=== PATIENT | female | born 1980 | race Asian ===

== ENCOUNTER 2018-06-25 18:02 | Outpatient (CLI) | payer OTHER ==
[2018-06-25] MEDS: TERBUTALINE 1 MG/ML INJ SC ×2 (19:11→20:24)
[2018-06-25] MEDS: LACTATED RINGER'S 1,000 ML IV ×2 (19:21→19:54)
[2018-06-25 19:29] LABS: ADD UMIC YES; UR ASCORBIC ACID 40 mg/dL (NEGATIVE); UR BACTERIA FEW /HPF (NONE SEEN); UR BILIRUBIN (Dip) NEGATIVE (NEGATIVE); UR BLOOD (Dip) NEGATIVE (NEGATIVE); UR CLARITY SLIGHTLY CLOUDY (CLEAR); UR COLOR YELLOW (YELLOW); UR GLUCOSE (Dip) NEGATIVE (NEGATIVE); UR KETONES (Dip) 2+ mg/dL (NEGATIVE); UR LEUKOCYTE ESTERASE (Dip) TRACE Leu/ul (NEGATIVE); UR MUCUS FEW /HPF (NONE SEEN); UR NITRITE (Dip) NEGATIVE (NEGATIVE); UR RBC 4 /HPF (0-5); UR SPECIFIC GRAVITY (Dip) 1.023 (1.003-1.030); UR TOTAL PROTEIN (Dip) NEGATIVE (NEGATIVE); UR UROBILINOGEN (Dip) NEGATIVE (NEGATIVE); UR WBC 2 /HPF (0-5)
== END 2018-06-25 22:47 | disposition home or self-care (01) ==
LOC: OBT 18:02 → L-D 18:04 → OBT 22:47
DX: O62.9 Abnormality of forces of labor, unspecified (principal); Z3A.35 35 weeks gestation of pregnancy
CPT/HCPCS: 76818; 81001; 96360; 96361; 96372

== ENCOUNTER 2018-07-06 10:01 | Outpatient (CLI) | payer OTHER ==
[2018-07-06 10:37] LABS: ADD UMIC NO; UR ASCORBIC ACID NEGATIVE (NEGATIVE); UR BILIRUBIN (Dip) NEGATIVE (NEGATIVE); UR BLOOD (Dip) NEGATIVE (NEGATIVE); UR CLARITY CLEAR (CLEAR); UR COLOR STRAW (YELLOW); UR GLUCOSE (Dip) NEGATIVE (NEGATIVE); UR KETONES (Dip) TRACE mg/dL (NEGATIVE); UR LEUKOCYTE ESTERASE (Dip) NEGATIVE Leu/ul (NEGATIVE); UR NITRITE (Dip) NEGATIVE (NEGATIVE); UR SPECIFIC GRAVITY (Dip) 1.003 (1.003-1.030); UR TOTAL PROTEIN (Dip) NEGATIVE (NEGATIVE); UR UROBILINOGEN (Dip) NEGATIVE (NEGATIVE)
[2018-07-06 10:42] LABS: ADD MAN DIFF? NO
[2018-07-06 10:47] LABS: BASOPHILS % 0.3 % (0.0-2.0); EOSINOPHILS % 0.5 % (0.0-7.0); HEMATOCRIT 43.4 % (37.0-47.0); HEMOGLOBIN 14.3 g/dl (12.0-16.0); LYMPHOCYTES # 1.4 10^3/ul (0.8-2.9); LYMPHOCYTES % 21.7 % (15.0-51.0); MEAN CORPUSCULAR HEMOGLOBIN 29.5 pg (29.0-33.0); MEAN CORPUSCULAR HGB CONC 32.9 g/dl (32.0-37.0); MEAN CORPUSCULAR VOLUME 89.7 fl (82.0-101.0); MEAN PLATELET VOLUME 11.4 fl (7.4-10.4); MONOCYTE # 0.5 10^3/ul (0.3-0.9); MONOCYTES % 8.2 % (0.0-11.0); NEUTROPHIL # 4.6 10^3/ul (1.6-7.5); PLATELET COUNT 192 10^3/UL (140-415); RED BLOOD COUNT 4.84 10^6/ul (4.20-5.40)
[2018-07-06 10:47] LABS: WHITE BLOOD COUNT 6.6 10^3/ul (4.8-10.8)
[2018-07-06 11:04] LABS: INR 0.83; PROTIME 11.5 Sec (11.9-14.9); PT RATIO 0.9
[2018-07-06 11:05] LABS: PARTIAL THROMBOPLASTIN TIME 26.9 Sec (23.0-35.0)
[2018-07-06 11:06] LABS: ALANINE AMINOTRANSFERASE 16 IU/L (13-69); ALBUMIN 3.7 g/dl (3.3-4.9); ALBUMIN/GLOBULIN RATIO 1.02; ALKALINE PHOSPHATASE 147 IU/L (42-121); ANION GAP 14 (5-13); ASPARTATE AMINO TRANSFERASE 21 IU/L (15-46); BILIRUBIN,INDIRECT 0.4 mg/dl (0-1.1); BILIRUBIN,TOTAL 0.4 mg/dl (0.2-1.3); BLOOD UREA NITROGEN 11 mg/dl (7-20); CALCIUM 9.7 mg/dl (8.4-10.2); CARBON DIOXIDE 21 mmol/L (21-31); CHLORIDE 102 mmol/L (97-110); CREATININE 0.51 mg/dl (0.44-1.00); Estimated GFR > 60 mL/min (>60); GLUCOSE 84 mg/dl (70-220); SODIUM 137 mmol/L (135-144); TOTAL PROTEIN 7.3 g/dl (6.1-8.1); URIC ACID 3.8 mg/dl (3.1-7.9)
== END 2018-07-06 12:35 | disposition home or self-care (01) ==
LOC: OBT 10:01 → L-D 10:01 → OBT 12:35
DX: O13.3 Gestational [pregnancy-induced] hypertension without significant proteinuria, third trimester (principal); O09.523 Supervision of elderly multigravida, third trimester; Z3A.37 37 weeks gestation of pregnancy
CPT/HCPCS: 80053; 81003; 84560; 85025; 85384; 85610; 85730

== ENCOUNTER 2018-07-08 08:00 | Outpatient (CLI) | payer OTHER ==
[2018-07-08 08:42] LABS: COLLECTION PERIOD 24 hrs; VOLUME 4300 ml/24hrs
[2018-07-08 09:04] LABS: COLLECTION PERIOD 24 hrs
[2018-07-08 09:10] LABS: CREATININE 0.59 mg/dl (0.44-1.00)
[2018-07-08 09:40] LABS: VOLUME 4300 mls
[2018-07-08 09:43] LABS: SCRET 0.59 mg/dl (0.44-1.00)
[2018-07-08 09:54] LABS: CREATININE CLEARANCE 100.8 mls/min (84.0-162.0); CREATININE,URINE RANDOM 19.92 mg/dl (20-320)
== END 2018-07-08 12:00 | disposition home or self-care (01) ==
LOC: OBT 08:00 → L-D 08:03 → OBT 12:00
DX: O13.3 Gestational [pregnancy-induced] hypertension without significant proteinuria, third trimester (principal); O24.410 Gestational diabetes mellitus in pregnancy, diet controlled; Z3A.37 37 weeks gestation of pregnancy
CPT/HCPCS: 76818; 82565; 82575; 84156

== ENCOUNTER 2018-07-19 05:40 | Inpatient (IN) | payer OTHER ==
[2018-07-19] MEDS: LACTATED RINGER'S 1,000 ML IV ×3 (06:26→22:10)
[2018-07-19] MEDS ORDERED: OXYTOCIN 30 UNITS/LR 500 ML IV ×2 (06:30→08:00)
[2018-07-19] MEDS ORDERED: METHYLERGONOVINE 0.2 MG INJ IM ×2 (06:30→08:00)
[2018-07-19] MEDS ORDERED: MISOPROSTOL 200 MCG TAB PR ×2 (06:30→08:00)
[2018-07-19] MEDS ORDERED: CARBOPROST 250 MCG INJ IM ×2 (06:30→08:00)
[2018-07-19 06:32] LABS: ADD MAN DIFF? NO
[2018-07-19 06:53] LABS: BASOPHILS % 0.3 % (0.0-2.0); EOSINOPHILS # 0.1 10^3/ul (0.0-0.5); EOSINOPHILS % 1.2 % (0.0-7.0); HEMATOCRIT 41.7 % (37.0-47.0); HEMOGLOBIN 13.9 g/dl (12.0-16.0); LYMPHOCYTES # 1.8 10^3/ul (0.8-2.9); LYMPHOCYTES % 28.1 % (15.0-51.0); MEAN CORPUSCULAR HEMOGLOBIN 30.4 pg (29.0-33.0); MEAN CORPUSCULAR HGB CONC 33.3 g/dl (32.0-37.0); MEAN CORPUSCULAR VOLUME 91.2 fl (82.0-101.0); MEAN PLATELET VOLUME 12.2 fl (7.4-10.4); MONOCYTE # 0.6 10^3/ul (0.3-0.9); MONOCYTES % 9.5 % (0.0-11.0); NEUTROPHIL # 3.9 10^3/ul (1.6-7.5); NEUTROPHILS % 60.3 % (39.0-77.0); PLATELET COUNT 166 10^3/UL (140-415); RED BLOOD COUNT 4.57 10^6/ul (4.20-5.40); RED CELL DISTRIBUTION WIDTH 15.1 % (11.5-14.5)
[2018-07-19 06:53] LABS: WHITE BLOOD COUNT 6.5 10^3/ul (4.8-10.8)
[2018-07-19 06:54] LABS: INR 0.81; PROTIME 11.3 Sec (11.9-14.9); PT RATIO 0.9
[2018-07-19 06:57] LABS: GLUCOSE 92 mg/dl (70-220)
[2018-07-19] MEDS ORDERED: OXYTOCIN 30 UNITS/LR 500 ML BAG IV (07:00)
[2018-07-19] MEDS ORDERED: ONDANSETRON 4 MG INJ (07:15)
[2018-07-19] MEDS: CITRIC ACID/NA CITRATE 30 ML CUP PO (07:21)
[2018-07-19] MEDS: CEFAZOLIN 2 GM/50 ML (PMX) 50 ML IVPB (07:21)
[2018-07-19] MEDS: ONDANSETRON 4 MG INJ IV (07:21)
[2018-07-19 07:28] LABS: HEPATITIS B SURFACE ANTIGEN NEGATIVE (NEGATIVE)
[2018-07-19] MEDS ORDERED: morphine SULFATE/PF (10 MG/10 ML) INJ (07:41)
[2018-07-19] MEDS ORDERED: PHENYLephrine (100 MCG/ML) 10ML SYG (07:41)
[2018-07-19] MEDS ORDERED: OXYTOCIN 10 UNIT INJ (07:41)
[2018-07-19] MEDS ORDERED: DEXAMETHASONE 4 MG/ML 1 ML INJ (07:54)
[2018-07-19] MEDS ORDERED: METOCLOPRAMIDE 10 MG INJ (07:54)
[2018-07-19] MEDS ORDERED: KETOROLAC 30 MG INJ (07:54)
[2018-07-19] MEDS ORDERED: HYDROCODONE/APAP (5/325) TAB PO ×3 (08:00→08:30)
[2018-07-19] MEDS ORDERED: CEFAZOLIN 1 GM/50 ML (PMX) 50 ML IVPB (08:00)
[2018-07-19] MEDS ORDERED: NACL 0.9% 3 ML SYG IV (08:00)
[2018-07-19] MEDS ORDERED: KETOROLAC 15 MG INJ IM (08:00)
[2018-07-19] MEDS ORDERED: IBUPROFEN 800 MG TAB PO (08:00)
[2018-07-19] MEDS ORDERED: ACETAMINOPHEN 500 MG TAB PO (08:30)
[2018-07-19] MEDS ORDERED: morphine 2 MG INJ IV ×2 (08:30)
[2018-07-19] MEDS ORDERED: ONDANSETRON 4 MG INJ IV ×2 (08:30)
[2018-07-19] MEDS ORDERED: KETOROLAC 30 MG INJ IV (08:30)
[2018-07-19] MEDS ORDERED: NALBUPHINE HCL (10 MG/1 ML) INJ IV (08:30)
[2018-07-19] MEDS ORDERED: HYDROmorphONE 1 MG/5 ML IV SYRINGE IV ×2 (08:30)
[2018-07-19] MEDS ORDERED: EPHEDrine SULFATE 50 MG/5 ML SYG IV (08:30)
[2018-07-19] MEDS ORDERED: OXYCODONE/ACETAMINOPHEN (5/325) TAB PO (08:30)
[2018-07-19] MEDS ORDERED: NALOXONE (0.4 MG/ML) INJ IV (08:30)
[2018-07-19] MEDS ORDERED: MEPERIDINE 25 MG INJ IV (08:30)
[2018-07-19] MEDS ORDERED: HYDROmorphONE 0.5 MG/0.5 ML SYG IV ×2 (08:30)
[2018-07-19] MEDS ORDERED: FENTAnyl 50 MCG/ML VIAL IV ×2 (08:30)
[2018-07-19] MEDS ORDERED: METOCLOPRAMIDE 10 MG INJ IV (08:30)
[2018-07-19] MEDS ORDERED: DIPHENHYDRAMINE 50 MG INJ IV ×2 (08:30)
[2018-07-19] MEDS: OXYTOCIN 30 UNITS/LR 500 ML IV ×6 (10:19→22:07)
[2018-07-19] MEDS: CEFAZOLIN 1 GM/50 ML (PMX) 50 ML IVPB ×2 (12:43→20:57)
[2018-07-19] MEDS: MAGNESIUM SULFATE 4 GM/100 ML 100 ML IVPB (15:07)
[2018-07-19 15:16] LABS: ADD MAN DIFF? NO
[2018-07-19] MEDS: MAGNESIUM SULFATE 20 GM/500 ML 500 ML IV (15:17)
[2018-07-19 15:20] LABS: WHITE BLOOD COUNT 15.8 10^3/ul (4.8-10.8)
[2018-07-19 15:20] LABS: BASOPHILS % 0.2 % (0.0-2.0); HEMATOCRIT 45.7 % (37.0-47.0); HEMOGLOBIN 15.1 g/dl (12.0-16.0); LYMPHOCYTES # 1.3 10^3/ul (0.8-2.9); LYMPHOCYTES % 7.9 % (15.0-51.0); MEAN CORPUSCULAR VOLUME 90.9 fl (82.0-101.0); MONOCYTE # 0.8 10^3/ul (0.3-0.9); MONOCYTES % 5.2 % (0.0-11.0); NEUTROPHIL # 13.6 10^3/ul (1.6-7.5); NEUTROPHILS % 86.1 % (39.0-77.0); PLATELET COUNT 162 10^3/UL (140-415); RED BLOOD COUNT 5.03 10^6/ul (4.20-5.40); RED CELL DISTRIBUTION WIDTH 14.9 % (11.5-14.5)
[2018-07-19 15:23] LABS: ADD UMIC NO; UR ASCORBIC ACID NEGATIVE (NEGATIVE); UR BILIRUBIN (Dip) NEGATIVE (NEGATIVE); UR BLOOD (Dip) NEGATIVE (NEGATIVE); UR CLARITY CLEAR (CLEAR); UR COLOR YELLOW (YELLOW); UR GLUCOSE (Dip) NEGATIVE (NEGATIVE); UR KETONES (Dip) NEGATIVE (NEGATIVE); UR LEUKOCYTE ESTERASE (Dip) NEGATIVE Leu/ul (NEGATIVE); UR NITRITE (Dip) NEGATIVE (NEGATIVE); UR SPECIFIC GRAVITY (Dip) 1.017 (1.003-1.030); UR TOTAL PROTEIN (Dip) NEGATIVE (NEGATIVE); UR UROBILINOGEN (Dip) NEGATIVE (NEGATIVE)
[2018-07-19 15:34] LABS: ALANINE AMINOTRANSFERASE 21 IU/L (13-69); ALBUMIN 3.5 g/dl (3.3-4.9); ALKALINE PHOSPHATASE 155 IU/L (42-121); ANION GAP 10 (5-13); ASPARTATE AMINO TRANSFERASE 22 IU/L (15-46); BILIRUBIN,INDIRECT 0.2 mg/dl (0-1.1); BILIRUBIN,TOTAL 0.2 mg/dl (0.2-1.3); BLOOD UREA NITROGEN 14 mg/dl (7-20); CALCIUM 9.2 mg/dl (8.4-10.2); CARBON DIOXIDE 23 mmol/L (21-31); CHLORIDE 105 mmol/L (97-110); CREATININE 0.53 mg/dl (0.44-1.00); Estimated GFR > 60 mL/min (>60); GLUCOSE 122 mg/dl (70-220); POTASSIUM 4.2 mmol/L (3.5-5.1); SODIUM 138 mmol/L (135-144); URIC ACID 3.6 mg/dl (3.1-7.9)
[2018-07-19 15:39] LABS: INR 0.81; PARTIAL THROMBOPLASTIN TIME 26.3 Sec (23.0-35.0); PROTIME 11.3 Sec (11.9-14.9); PT RATIO 0.9
[2018-07-19 16:01] LABS: FIBRIN SPLIT PRODUCT <10 ug/ml (<10)
[2018-07-19 19:46] LABS: RAPID PLASMA REAGIN NONREACTIVE (NR)
[2018-07-20] MEDS: MAGNESIUM SULFATE 20 GM/500 ML 500 ML IV (01:13)
[2018-07-20 01:15] LABS: MAGNESIUM 5.9 mg/dl (1.7-2.5)
[2018-07-20] MEDS: OXYTOCIN 30 UNITS/LR 500 ML IV ×4 (04:55→15:49)
[2018-07-20] MEDS: CEFAZOLIN 1 GM/50 ML (PMX) 50 ML IVPB (05:03)
[2018-07-20] MEDS: LACTATED RINGER'S 1,000 ML IV (06:14)
[2018-07-20 07:22] LABS: ADD MAN DIFF? NO
[2018-07-20 07:23] LABS: BASOPHILS % 0.2 % (0.0-2.0); EOSINOPHILS # 0.1 10^3/ul (0.0-0.5); EOSINOPHILS % 0.4 % (0.0-7.0); HEMATOCRIT 35.9 % (37.0-47.0); LYMPHOCYTES # 1.5 10^3/ul (0.8-2.9); LYMPHOCYTES % 10.7 % (15.0-51.0); MEAN CORPUSCULAR HEMOGLOBIN 30.2 pg (29.0-33.0); MEAN CORPUSCULAR HGB CONC 33.4 g/dl (32.0-37.0); MEAN CORPUSCULAR VOLUME 90.2 fl (82.0-101.0); MEAN PLATELET VOLUME 12.2 fl (7.4-10.4); MONOCYTE # 1.2 10^3/ul (0.3-0.9); MONOCYTES % 8.2 % (0.0-11.0); NEUTROPHIL # 11.3 10^3/ul (1.6-7.5); NEUTROPHILS % 80.1 % (39.0-77.0); PLATELET COUNT 146 10^3/UL (140-415); RED BLOOD COUNT 3.98 10^6/ul (4.20-5.40); RED CELL DISTRIBUTION WIDTH 14.8 % (11.5-14.5)
[2018-07-20 07:23] LABS: WHITE BLOOD COUNT 14.1 10^3/ul (4.8-10.8)
[2018-07-20 08:08] LABS: MAGNESIUM 6.4 mg/dl (1.7-2.5)
[2018-07-20] MEDS: SENNA TAB PO (20:58)
[2018-07-21] MEDS: SENNA TAB PO ×2 (08:46→21:00)
[2018-07-22] MEDS: SENNA TAB PO (09:12)
== END 2018-07-22 12:40 | disposition home or self-care (01) | DRG 788 ==
LOC: L-D 05:40 → PP1 10:58
PROVIDERS: Obstetrics & Gynecology
PROC: 10D00Z1 Extraction of Products of Conception, Low, Open Approach (ICD-10-PCS; principal; 2018-07-19 07:30)
DX: O34.219 Maternal care for unspecified type scar from previous cesarean delivery (principal); O24.424 Gestational diabetes mellitus in childbirth, insulin controlled; O75.89 Other specified complications of labor and delivery; O99.89 Other specified diseases and conditions complicating pregnancy, childbirth and the puerperium; N83.8 Other noninflammatory disorders of ovary, fallopian tube and broad ligament; R03.0 Elevated blood-pressure reading, without diagnosis of hypertension; Z3A.38 38 weeks gestation of pregnancy; Z37.0 Single live birth; Z30.2 Encounter for sterilization; Z53.8 Procedure and treatment not carried out for other reasons
CPT/HCPCS: 80053; 81003; 82947; 83735; 84560; 85025; 85362; 85384; 85610; 85730; 86592; 86850; 86900; 86901; 87340; 99464